=== PATIENT | female | born 1995 | race Caucasian/White ===

== ENCOUNTER 2017-10-28 09:22 | Emergency (ER) | payer OTHER ==
[~2017-10-28] VITALS: Ht 160 cm; Wt 92.0 kg
[2017-10-28 09:28] VITALS: BP 144/91
== END 2017-10-28 11:20 | disposition home or self-care (01) ==
LOC: ER 10:12
DX: H60.92 Unspecified otitis externa, left ear (principal)
CPT/HCPCS: 81025; 99283

== ENCOUNTER 2017-11-02 15:36 | Emergency (ER) | payer OTHER ==
[~2017-11-02] VITALS: Ht 160 cm; Wt 92.0 kg
[2017-11-02 17:02] VITALS: BP 136/98
== END 2017-11-02 18:43 | disposition home or self-care (01) ==
LOC: ER 15:36
DX: H60.92 Unspecified otitis externa, left ear (principal); H66.92 Otitis media, unspecified, left ear; J02.9 Acute pharyngitis, unspecified
CPT/HCPCS: 99283

== ENCOUNTER 2018-05-08 16:50 | Emergency (ER) | payer MEDICAID, OTHER ==
[~2018-05-08] VITALS: Ht 160 cm; Wt 93.0 kg
[2018-05-08] MEDS ORDERED: HYDROCODONE/ACETAMINOPHEN 5/325MG TABLET PO ONE (21:45)
[2018-05-09 00:38] VITALS: BP 113/76
== END 2018-05-09 00:40 | disposition home or self-care (01) ==
LOC: ER 17:30
DX: N61.0 Mastitis without abscess (principal); Z90.49 Acquired absence of other specified parts of digestive tract; Z98.890 Other specified postprocedural states
CPT/HCPCS: 76641; 99284